=== PATIENT | female | born 1960 | race Caucasian/White ===

== ENCOUNTER 2016-12-14 19:44 | Emergency (ER) | payer OTHER ==
[2016-12-14 20:06] VITALS: BP 115/82
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
[2016-12-14] MEDS ORDERED: AMOX TR/POTASSIUM CLAVULANATE 875 MG TABLET PO ONE (20:43)
[2016-12-14] MEDS ORDERED: NAPROXEN SODIUM 550 MG TABLET PO ONE (20:43)
[2016-12-14] MEDS ORDERED: AMOX TR/POTASSIUM CLAVULANATE 875 MG TABLET ONE (20:52)
[2016-12-14] MEDS ORDERED: NAPROXEN SODIUM 550 MG TABLET ONE (20:52)
== END 2016-12-14 21:06 | disposition home or self-care (01) ==
LOC: ER 19:44
DX: S61.411A Laceration without foreign body of right hand, initial encounter (principal); L08.9 Local infection of the skin and subcutaneous tissue, unspecified; F17.210 Nicotine dependence, cigarettes, uncomplicated; Y04.2XXA Assault by strike against or bumped into by another person, initial encounter

== ENCOUNTER 2017-04-10 14:45 | Emergency (ER) | payer OTHER ==
[2017-04-10 15:09] LABS: Hematocrit 43.9 % (37.0-47.0); Hemoglobin 15.7 gm/dL (12.5-16.0); Mean Cell Volume 95.6 fl (78-100); Mean Corpuscular Hemoglobin 34.2 pg (27-31); Mean Corpuscular Hgb Conc 35.8 g/dl (32-36); Mean Platelet Volume 9.8 fl (6.0-9.5); Neutrophil # 3.2 K/mm3 (1.3-6.0); Neutrophil % 47.9 % (42-75.0); Platelet Count 194 K/mm3 (150-450); Red Blood Count 4.59 M/mm3 (4.2-5.4); Red Cell Distribution Width 12.1 % (11.5-14.0); White Blood Count 6.7 K/mm3 (4.0-10.5)
[2017-04-10 15:24] LABS: Albumin * 3.2 gm/dl (3.4-5.0); Anion Gap 19.1 mmol/L (6.8-13.8); BUN/Creatinine Ratio 8.6 (9.0-21.6); Bilirubin, Total 0.4 mg/dL (0.0-1.1); Ca. Corrected For Albumin 8.8 mg/dL (8.4-10.2); Calcium * 8.5 mg/dL (7.9-10.9); Carbon Dioxide 22.8 mmol/L (24-32.6); Potassium 3.9 mmol/L (3.4-4.6); Total Protein 6.7 gm/dL (6.2-8.2)
[2017-04-10 15:40] LABS: Cocaine Ur Negative (NEGATIVE); Urine Barbiturate Negative (NEGATIVE); Urine Benzodiazepines Negative (NEGATIVE); Urine Opiates Negative (NEGATIVE); Urine PCP Negative (NEGATIVE); Urine THC Positive (NEGATIVE)
[2017-04-10 15:43] VITALS: BP 118/81
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
--- OUTSIDE RECORDS SUMMARY | 2017-04-10 16:23 | XMS REPORT | Continuity of Care Document ---
:1960 Author Organization [facility] ([facility]) [place] [address] Phone [phone] Care Team Providers Name Role Phone Provider, No-Primary Care Primary Care Provider Unavailable Source Comments This disclosure is being made pursuant to the Care Everywhere program, applicable federal and state laws, and may not contain all informaitonavailable regarding this patient.[facility] ([facility]) Active Allergies and Adverse Reactions Allergen Noted Date Severity Reactions Comments Ibuprofen 01/29/2016 Nausea & Vomiting Current Medications Prescription Sig. Disp. Refills Start Date End Date Status levothyroxine 150 mcg Take 150 mcg by Active tablet mouth every morning before breakfast. albuterol 90 Use 2 Puffs by Active mcg/Actuation inhaler inhalation every 4 hours as needed. acetaminophen 325 mg Take 2 tablets 60 tablet 1 01/29/2016 Active tablet (650 mg total) by mouth every 4 hours as needed. albuterol 2.5 mg/3 mL Use 3 mL (2.5 mg 90 mL 0 01/29/2016 Active inhalation solution total) by inhalation every 4 hours as needed. nicotine 21 mg/24 hr Apply 1 Patch (21 14 Patch 0 01/29/2016 Active patch mg total) on the skin daily. Active Problems Problem Noted Date Fall at home 01/29/2016 Fall 01/29/2016 Sore muscles 01/29/2016 Social History Tobacco Use Types Packs/Day Years Used Date Never Assessed Last Filed Vital Signs Vital Sign Reading Time Taken Blood Pressure 153/81 01/29/2016 8:00 AM RADIATION CONTROL WORKER Pulse 87 01/29/2016 8:00 AM RADIATION CONTROL WORKER Temperature 36.7 C (98.1 F) 01/29/2016 8:00 AM RADIATION CONTROL WORKER Respiratory Rate 16 01/29/2016 8:00 AM RADIATION CONTROL WORKER Height 1.715 m (5' 7.5") 01/29/2016 3:28 AM RADIATION CONTROL WORKER Weight 74.844 kg (165 lb) 01/29/2016 3:28 AM RADIATION CONTROL WORKER Body Mass Index 25.45 01/29/2016 3:28 AM RADIATION CONTROL WORKER Oxygen Saturation 95% 01/29/2016 8:00 AM RADIATION CONTROL WORKER Plan of Care Health Maintenance Due Date Last Done Comments HCV Screening 1960 Hepatitis B Vaccine (1 of 3 - Primary Series) 1960 Tdap Vaccine 1973 Lipid Disorder Screening 1980 MMR Vaccine 1980 Td Vaccine 1980 Pneumococcal Vaccine (1 of 1 - PPSV23) 1981 Cervical Cancer Screening 1992 Mammogram 2002 Colonoscopy 2012 Influenza Vaccine: Seasonal (#1) 06/29/2016 Results from Last 3 Months Not on file
[2017-04-10] MEDS ORDERED: PROCHLORPERAZINE EDISYLATE 5 MG/ML VIAL IV ONE (16:25)
[2017-04-10] MEDS ORDERED: diphenhydrAMINE HCL 50 MG/ML VIAL IV ONE (16:25)
[2017-04-10] MEDS ORDERED: PROCHLORPERAZINE EDISYLATE 5 MG/ML VIAL ONE (16:27)
[2017-04-10] MEDS ORDERED: diphenhydrAMINE HCL 50 MG/ML VIAL ONE (16:27)
[2017-04-10 16:40] LABS: Acetaminophen * 3.1 mcg/mL (10.0-30.0); Salicylate 11.8 mg/dL (2.8-20.0); TSH * 9.131 uIU/mL (0.358-3.74)
== END 2017-04-10 16:47 | disposition home or self-care (01) ==
LOC: ER 14:45
DX: R51 Headache (principal); F17.200 Nicotine dependence, unspecified, uncomplicated; J44.9 Chronic obstructive pulmonary disease, unspecified
CPT/HCPCS: 36415; 71010; 80053; 80307; 84443; 85025; 94760; 96374; 96375; 99284; G0480; G0481

== ENCOUNTER 2017-04-19 13:39 | Emergency (ER) | payer OTHER ==
[2017-04-19] MEDS ORDERED: ACETAMINOPHEN 500 MG TABLET PO ONE (14:15)
--- OUTSIDE RECORDS SUMMARY | 2017-04-19 14:23 | XMS REPORT | Continuity of Care Document ---
:1960 Author Organization [facility] ([facility]) [place] [address] Phone [phone] Care Team Providers Name Role Phone Provider, No-Primary Care Primary Care Provider Unavailable Source Comments This disclosure is being made pursuant to the Care Everywhere program, applicable federal and state laws, and may not contain all informaitonavailable regarding this patient.[facility] ([facility]) Active Allergies and Adverse Reactions Allergen Noted [...] Taken Blood Pressure 153/81 01/29/2016 8:00 AM GRAPHIC DESIGN INTERN Pulse 87 01/29/2016 8:00 AM GRAPHIC DESIGN INTERN Temperature 36.7 C (98.1 F) 01/29/2016 8:00 AM GRAPHIC DESIGN INTERN Respiratory Rate 16 01/29/2016 8:00 AM GRAPHIC DESIGN INTERN Height 1.715 m (5' 7.5") 01/29/2016 3:28 AM GRAPHIC DESIGN INTERN Weight 74.844 kg (165 lb) 01/29/2016 3:28 AM GRAPHIC DESIGN INTERN Body Mass Index 25.45 01/29/2016 3:28 AM GRAPHIC DESIGN INTERN Oxygen Saturation 95% 01/29/2016 8:00 AM GRAPHIC DESIGN INTERN Plan of Care Health Maintenance Due Date [...]
--- NOTE | 2017-04-19 14:38 | ERNOTE ---
Upper Extremity HPI - General Extremities Pain Location: wrist: left Time Seen by Provider: 04/19/17 14:10 Source: patient Exam Limitations: no limitations - Immun/Allergies/Home Medications Immunizations: IMMUNIZATION HX Immunizations Up to Date Yes History of Influenza Vaccine Yes Hx Pneumococcal Vaccination No Allergies/Adverse Reactions: Allergies Allergy/AdvReac Type Severity Reaction Status Date / Time aspirin AdvReac Mild Vomiting Verified 04/19/17 13:42 ketorolac tromethamine AdvReac Mild Vomiting Verified 04/19/17 13:42 [From Toradol] ibuprofen AdvReac Vomiting Verified 04/10/17 14:53 cherries Allergy Severe Swelling Uncoded 04/10/17 14:53 of Throat Home Medications: HOME MEDICATIONS Albuterol Sulfate [Ventolin HFA] 2 puff IH Q4H PRN #1 inhaler 02/05/16 [Last Taken Unknown] - History of Present Illness Narrative: Patient tripped on the stairs yesterday and landed awkwardly on her left wrist complaints of pain and decreased range of motion secondary to the pain. Patient stated that she drank a sixpack of beer in less than an hour trying to lessen the pain just prior to coming to the ED. Occurred: yesterday Location of Incident: home Severity: moderate Method of Injury: Reports: direct blow Reason for Fall: Reports: tripped Loss of Consciousness: Reports: no loss of consciousness Other Injuries: Reports: none Review of Systems - Review of Systems Constitutional: Present: See HPI EYE: Present: no symptoms reported ENT: Present: no symptoms reported Respiratory: Present: no symptoms reported Cardiology: Present: no symptoms reported Gastrointestinal/Abdominal: Present: no symptoms reported Genitourinary: Present: no symptoms reported Musculoskeletal: Present: See HPI, joint pain Skin: Present: no symptoms reported Neurological: Present: no symptoms reported Endocrine: Present: no symptoms reported Hematologic/Lymphatic: Present: no symptoms reported Psych: Present: no symptoms reported - Patient's Past Medical History Patient History - Medical: No pertinent hx, Alcohol Abuse, Headache Patient History - Cardiac/Respiratory: COPD Patient History - Cancer: No Hx of Cancer Patient History - Surgical Procedures: D & C, Tubal Ligation, T & A Patient History - Other: None - Family History Mother Family History - Medical: Alcohol Abuse, Diabetes Type 1, Dementia Family History - Cardiac/Respiratory: Coronary Heart Disease, CVA/Stroke, Hypertension - Social History Living Situations: home Abuse History: No History of abuse Psych History: No pertinent hx Smoking Status: Current every day smoker Have you smoked in the past 12 months: Yes Do you dip or chew tobacco: No Alcohol Use: occasionally Drug Use: marijuana - Immunizations Immunizations Up to Date: Yes Hx Pneumococcal Vaccination: No History of Influenza Vaccine: Yes Physical Exam - Physical Exam General Appearance: Present: wd/wn, alert, moderate distress Eye Exam: Normal inspection: bilateral, PERRL: bilateral Ears, Nose, Throat: Present: normal ENT inspection, H, normal pharynx Neck: Present: normal inspection, nontender Respiratory: Present: no respiratory distress, normal breath sounds, no accessory muscle use, chest nontender, lungs clear Cardiovascular/Chest: Present: regular rate, rhythm, no murmur, normal peripheral pulses Gastrointestinal/Abdominal: Present: normal bowel sounds, nontender, nondistended, soft, no organomegaly Rectal Exam: Present: deferred Back Exam: Present: normal inspection, normal range of motion Extremity Exam: Present: no edema, decreased range of motion, other - tenderness to the left wrist area Neurological Exam: Present: alert, oriented, normal mood/affect Skin Exam: Present: normal color, warm/dry Lymphatic Exam: Present: no adenopathy ED Progress - Vital Signs Patient's Vital Signs:: I have reviewed the patient's vital signs. Vital Signs: Vital Signs 04/19/17 13:42 Temperature 36.3 C L Pulse Rate 81 Respiratory 14 Rate Blood Pressure 115/67 O2 Sat by Pulse 94 Oximetry - X-Ray X-Ray #1 X-Ray: wrist Interpretation: Reviewed by me - Progress/Reassessment Chief Complaint: Upper Extremity Injury/Problem Plan - Plan Plan: Patient will be placed in a cockup wrist splint and she will follow-up with Dr. Garcia. Departure Clinical Impression: Wrist sprain Qualifiers: Encounter type: initial encounter Laterality: left Qualified Code(s): S63.502A - Unspecified sprain of left wrist, initial encounter - Departure Disposition: Home self-care Condition: Good Instructions: Wrist Pain, [id number] Referrals: Leandro Jones MD [Staff Physician] -
[2017-04-19 15:55] VITALS: BP 119/69
== END 2017-04-19 15:42 | disposition home or self-care (01) ==
LOC: ER 13:39
PROC: 2W3FX1Z Immobilization of Left Hand using Splint (ICD-10-PCS; principal; 2017-04-19)
DX: S63.502A Unspecified sprain of left wrist, initial encounter (principal); W10.2XXA Fall (on)(from) incline, initial encounter; Y93.9 Activity, unspecified; Y92.009 Unspecified place in unspecified non-institutional (private) residence as the place of occurrence of the external cause